=== PATIENT | female | born 1990 | race Two or more races ===

== ENCOUNTER 2018-01-14 04:16 | Emergency (ER) | payer MEDICAID ==
[~2018-01-14] VITALS: Ht 157.5 cm; Wt 56.7 kg
[2018-01-14 05:30] LABS: Urine Bacteria FEW /hpf (None Seen); Urine Blood 2+ /uL (Negative); Urine Specific Gravity 1.019 (1.001-1.035); Urine WBC 1100 /hpf (0 - 5)
[2018-01-14 09:00] VITALS: BP 135/94
== END 2018-01-14 09:50 | disposition home or self-care (01) ==
LOC: ER 04:19
DX: S80.11XA Contusion of right lower leg, initial encounter (principal); S30.1XXA Contusion of abdominal wall, initial encounter; N39.0 Urinary tract infection, site not specified; F17.210 Nicotine dependence, cigarettes, uncomplicated; V43.62XA Car passenger injured in collision with other type car in traffic accident, initial encounter; Y93.89 Activity, other specified; Y92.410 Unspecified street and highway as the place of occurrence of the external cause; Y99.8 Other external cause status
CPT/HCPCS: 70450; 71250; 72125; 73590; 74176; 81001; 81025